=== PATIENT | male | born 1975 | race African-American/Black ===

== ENCOUNTER 2021-02-05 19:05 | Emergency (ER) | payer OTHER ==
[~2021-02-05] VITALS: Ht 160 cm; Wt 74.8 kg
[2021-02-05 20:09] LABS: PLATELET COUNT 196 K/uL (142-355)
[2021-02-05 20:12] LABS: POTASSIUM 4.1 mmol/L (3.6-5.2)
[2021-02-05 20:24] LABS: PARTIAL THROMBOPLASTIN TIME 21.4 SECONDS (24.5-33.6)
[2021-02-05 22:21] VITALS: BP 142/74; TEMP 98.7
== END 2021-02-05 22:21 | disposition home or self-care (01) ==
LOC: ED 19:16
PROVIDERS: Hospitalist
DX: S16.1XXA Strain of muscle, fascia and tendon at neck level, initial encounter (principal); S39.012A Strain of muscle, fascia and tendon of lower back, initial encounter; V49.60XA Unspecified car occupant injured in collision with unspecified motor vehicles in traffic accident, initial encounter; Y92.89 Other specified places as the place of occurrence of the external cause
CPT/HCPCS: 36415; 80053; 80320; 85027; 85610; 85730; 96372; 99283; J1885; Q9963